=== PATIENT | male | born 1995 | race Caucasian/White ===

== ENCOUNTER 2024-12-13 12:36 | Observation (INO) | payer OTHER ==
[2024-12-13 14:03] LABS: Basophils # (A) 0.09 10*3/uL (0.00-0.10); Basophils % (A) 2.1 %; Eosinophils # (A) 0.02 10*3/uL (0.04-0.35); Eosinophils % (A) 0.5 %; HCT 43.9 % (39.6-50.0); HGB 15.6 g/dL (13.0-17.0); Lymphocytes # (A) 1.31 10*3/uL (0.90-5.00); Lymphocytes % (A) 31.3 %; MCH 31.9 pg (27.0-32.0); MCHC 35.5 g/dL (32.0-37.0); MCV 89.8 fL (80.0-97.0); Monocytes # (A) 0.29 10*3/uL (0.20-1.00); Monocytes % (A) 6.9 %; Neutrophils # (A) 2.47 10*3/uL (1.80-7.70); Neutrophils % (A) 59.0 %; Platelet Count 352 10*3/uL (140-440); RBC 4.89 10*6/uL (4.40-5.60); RDW 14.2 % (11.5-14.5); WBC 4.19 10*3/uL (4.50-10.00)
[2024-12-13] MEDS: SODIUM CHLORIDE 0.9% 1,000 ML IV SCH (14:04)
[2024-12-13 14:13] LABS: ALT 48 U/L (4-49); AST 38 U/L (17-59); African American GFR (CKD) >90 (>60 ml/min/1.73 sqM); Albumin 4.4 g/dL (3.5-5.0); Alkaline Phosphatase 74 U/L (38-126); Anion Gap 16 mmol/L; Blood Urea Nitrogen 5 mg/dL (9-20); Calcium 8.8 mg/dL (8.4-10.2); Carbon Dioxide 22 mmol/L (22-30); Chloride 108 mmol/L (98-107); Glucose 85 mg/dL (74-99); Lipase 165 U/L (23-300); Magnesium 1.7 mg/dL (1.6-2.3); Non-African American GFR(CKD) >90 (>60 ml/min/1.73 sqM); Potassium 4.4 mmol/L (3.5-5.1); Sodium 146 mmol/L (137-145); Total Protein 7.3 g/dL (6.3-8.2)
[2024-12-13] MEDS ORDERED: NALOXONE 0.4 MG/ML 1 ML VIAL IV PRN (14:21)
[2024-12-13] MEDS ORDERED: LORazepam 1 MG/0.5 ML VIAL IV PRN ×2 (14:21)
--- NOTE | 2024-12-13 14:21 | ED ---
Psych HPI - General Chief Complaint: Psychiatric Symptoms Stated Complaint: ETOH,Suicidal Time Seen by Provider: 12/13/24 12:37 Source: patient, EMS, RN notes reviewed Mode of arrival: EMS Limitations: no limitations - History of Present Illness Initial Comments: 28-year-old male presents emergency department with chief complaint of alcohol abuse, depression. Patient was checking in [place] today with suicidal. Patient states that he is just upset he lost his father 2 years ago. He drinks at least 1/5 of petition and sent over for evaluation. He does admit to prior drug use. Denies attempt at self-harm today. Denies any abdominal pain no headache or dizziness. Patient does admit to significant withdrawal symptoms in the past - Related Data Home Medications Medication Instructions Recorded Confirmed No Known Home Medications 12/13/24 12/13/24 Allergies Allergy/AdvReac Type Severity Reaction Status Date / Time No Known Allergies Allergy Verified 12/13/24 14:02 Review of Systems ROS Statement: Those systems with pertinent positive or pertinent negative responses have been documented in the HPI. ROS Other: All systems not noted in ROS Statement are negative. Past Medical History Past Medical History: No Reported History Past Surgical History: No Surgical Hx Reported Smoking Status: Current every day smoker Past Alcohol Use History: Abuse Past Drug Use History: Opiates General Exam General appearance: alert, in no apparent distress, appears intoxicated Head exam: Present: atraumatic, normocephalic, normal inspection Eye exam: Present: normal appearance, PERRL, EOMI. Absent: scleral icterus, conjunctival injection, periorbital swelling ENT exam: Present: normal exam, mucous membranes moist Neck exam: Present: normal inspection, full ROM. Absent: tenderness, meningismus, lymphadenopathy Respiratory exam: Present: normal lung sounds bilaterally. Absent: respiratory distress, wheezes, rales, rhonchi, stridor Cardiovascular Exam: Present: regular rate, normal rhythm, normal heart sounds. Absent: systolic murmur, diastolic murmur, rubs, gallop, clicks GI/Abdominal exam: Present: soft, normal bowel sounds. Absent: distended, tenderness, guarding, rebound, rigid Course Vital Signs 12/13/24 12:38 Temperature 97.8 F Pulse Rate 98 Respiratory 18 Rate Blood Pressure 134/85 O2 Sat by Pulse 99 Oximetry Medical Decision Making - Medical Decision Making Was pt. sent in by a medical professional or institution (SAEED Joel, CHILD WELFARE CONSULTANT, urgent care, hospital, or prison...) When possible be specific @ -[place] Did you speak to anyone other than the patient for history (EMS, parent, family, police, friend...)? What history was obtained from this source @ -No Did you review nursing and triage notes (agree or disagree)? Why? @ -I reviewed and agree with nursing and triage notes Were old charts reviewed (outside hosp., previous admission, EMS record, old EKG, old radiological studies, urgent care reports/EKG's, prison records)? Report findings @ -No old charts were reviewed Differential Diagnosis (chest pain, altered mental status, abdominal pain women, abdominal pain men, vaginal bleeding, weakness, fever, dyspnea, syncope, headache, dizziness, GI bleed, back pain, seizure, CVA, palpatations, mental health, musculoskeletal)? @ -Differential Mental Health Depression, anxiety, bipolar, psychosis, schizophrenia, borderline personality, situational depression, adjustment disorder, behavioral disorder, brain tumor, malingering, substance abuse, encephalopathy, medication reaction, dementia, hypothyroidism, degenerative neurologic disorder, lupus.... This is not meant to be all-inclusive list EKG interpreted by me (3pts min.). @ -None X-rays interpreted by me (1pt min.). @ -None done CT interpreted by me (1pt min.). @ -None done U/S interpreted by me (1pt. min.). @ -None done What testing was considered but not performed or refused? (CT, X-rays, U/S, labs)? Why? @ -None What meds were considered but not given or refused? Why? @ -None Did you discuss the management of the patient with other professionals (professionals i.e. SAE[facility] Joel, CHILD WELFARE CONSULTANT, lab, RT, psych nurse, clinical social work therapist, senior nurse manager, teacher, patient safety officer, nurse outreach case manager)? Give summary @ -Patient admitted to [facility] with consult to EPS Was smoking cessation discussed for >3mins.? @ -No Was critical care preformed (if so, how long)? @ -No Were there social determinants of health that impacted care today? How? (Homelessness, low income, unemployed, alcoholism, drug addiction, transportation, low edu. Level, literacy, decrease access to med. care, [place] [facility], rehab)? @ -No Was there de-escalation of care discussed even if they declined (Discuss DNR or withdrawal of care, Hospice)? DNR status @ -No What co-morbidities impacted this encounter? (DM, HTN, Smoking, COPD, CAD, Cancer, CVA, ARF, Chemo, Hep., AIDS, mental health diagnosis, sleep apnea, morbid obesity)? @ -alcohol abuse Was patient admitted / discharged? Hospital course, mention meds given and route, prescriptions, significant lab abnormalities, going to OR and other pertinent info. @ -Admitted patient has significant alcohol intoxication with admitted for sobriety, pending EPS evaluation and alcohol withdrawal protocol Undiagnosed new problem with uncertain prognosis? @ -No Drug Therapy requiring intensive monitoring for toxicity (Heparin, Nitro, Insulin, Cardizem)? @ -No Were any procedures done? @ -No Diagnosis/symptom? @ -Alcohol abuse alcohol intoxication, depression, suicide ideation Acute, or Chronic, or Acute on Chronic? @ -Acute Uncomplicated (without systemic symptoms) or Complicated (systemic symptoms)? @ -Comp. Side effects of treatment? @ -No Exacerbation, Progression, or Severe Exacerbation? @ -No Poses a threat to life or bodily function? How? (Chest pain, USA, FL, pneumonia, PE, COPD, DKA, ARF, appy, cholecystitis, CVA, Diverticulitis, Homicidal, Suicidal, threat to staff... and all critical care pts) @ -[Yes suicidal - Lab Data Result diagrams: 12/13/24 13:46 Lab Results 12/13/24 Range/Units 13:46 WBC 4.19 L (4.50-10.00) 10*3/uL RBC 4.89 (4.40-5.60) 10*6/uL Hgb 15.6 (13.0-17.0) g/dL Hct 43.9 (39.6-50.0) % MCV 89.8 (80.0-97.0) fL MCH 31.9 (27.0-32.0) pg MCHC 35.5 (32.0-37.0) g/dL Plt Count 352 (140-440) 10*3/uL MPV 8.7 L (9.5-12.2) fL Immature Gran % (Auto) 0.2 % Neutrophils % 59.0 % Lymphocytes % 31.3 % Monocytes % 6.9 % Eosinophils % 0.5 % Basophils % 2.1 % Immature Gran # 0.01 (0.00-0.04) 10*3/uL Neutrophils # 2.47 (1.80-7.70) 10*3/uL Lymphocytes # 1.31 (0.90-5.00) 10*3/uL Monocytes # 0.29 (0.20-1.00) 10*3/uL Eosinophils # 0.02 L (0.04-0.35) 10*3/uL Basophils # 0.09 (0.00-0.10) 10*3/uL Disposition Clinical Impression: Depression, Alcohol intoxication, Alcohol abuse Disposition: ADMITTED IP TO THIS HOSP Condition: Poor Referrals: None,Stated [Primary Care Provider] - 1-2 days Time of Disposition: 14:20
[2024-12-13 14:35] LABS: Opiate Screen,Urine Not Detected (NotDetected); Phencyclidine Screen,Urine Not Detected (NotDetected); Urn Cannabinoid Scrn Not Detected (NotDetected)
[2024-12-13 14:36] LABS: Barbiturate Screen,Urine Detected (NotDetected); Benzodiazepines Screen,Urine Detected (NotDetected); Oxycodone Screen, Urine Not Detected (NotDetected); Tricyclic Antidepressant,Urine Not Detected (NotDetected)
[2024-12-13] MEDS ORDERED: TEMAZEPAM 15 MG CAP PO PRN (16:43)
[2024-12-13] MEDS: LORazepam 1 MG/0.5 ML VIAL IV PRN (21:02)
[2024-12-14] MEDS: LORazepam 1 MG TAB PO PRN (04:23)
[2024-12-14] MEDS: PANTOPRAZOLE 40 MG TABLET PO SCH (06:36)
[2024-12-14 08:26] LABS: ALT 40 U/L (10-49); AST 27 U/L (14-35); Albumin 3.6 g/dL (3.8-4.9); Albumin/Globulin Ratio 1.57 Ratio (1.60-3.17); Alkaline Phosphatase 65 U/L (41-126); Anion Gap 11.10 mmol/L (4.00-12.00); BUN/Creat Ratio 10.00 Ratio (12.00-20.00); Blood Urea Nitrogen 6.0 mg/dL (9.0-27.0); Calcium 8.7 mg/dL (8.7-10.3); Carbon Dioxide 25.9 mmol/L (21.6-31.8); Chloride 105 mmol/L (96-109); Globulin 2.3 g/dL (1.6-3.3); Glucose 74 mg/dL (70-110); Potassium 4.1 mmol/L (3.5-5.5); Sodium 142 mmol/L (135-145); Total Protein 5.9 g/dL (6.2-8.2)
[2024-12-14 08:30] LABS: Basophils # (A) 0.09 X 10*3/uL (0.00-0.10); Basophils % (A) 1.8 %; Eosinophils # (A) 0.06 X 10*3/uL (0.04-0.35); Eosinophils % (A) 1.2 %; HCT 39.1 % (39.6-50.0); HGB 13.2 g/dL (13.0-17.0); Immature Grans, Automated 0.20 %; Lymphocytes # (A) 1.24 X 10*3/uL (0.90-5.00); Lymphocytes % (A) 24.2 %; MCH 31.1 pg (27.0-32.0); MCHC 33.8 g/dL (32.0-37.0); MCV 92.0 FL (80.0-97.0); Monocytes # (A) 0.54 X 10*3/uL (0.20-1.00); Monocytes % (A) 10.5 %; NRBC Per 100 WBC 0 X 10*3/uL (0.00-0.01); Neutrophils # (A) 3.18 X 10*3/uL (1.80-7.70); Neutrophils % (A) 62.1 %; Platelet Count 299 X 10*3/uL (140-440); RBC 4.25 X 10*6/uL (4.40-5.60); RDW 14.2 % (11.5-14.5); WBC 5.12 X 10*3/uL (4.50-10.00)
[2024-12-14] MEDS: THIAMINE 100 MG TAB PO SCH (09:54)
[2024-12-14] MEDS: LORazepam 0.5 MG TAB PO PRN (12:35)
--- NOTE | 2024-12-14 12:49 | HP ---
HISTORY AND PHYSICAL CHIEF COMPLAINT: Alcohol intoxication and depression. HISTORY OF PRESENT ILLNESS: This is a 28-year-old gentleman with a past history of multiple medical problems including significant alcohol intake and on rehab on multiple occasions, also presented with [facility]. The patient apparently was suicidal and upset with the loss of his father and the patient apparently drank today and the patient alcohol level was 218 and the patient admitted for further evaluation and treatment. There is no history of fever, rigors, or chills at this time. PAST MEDICAL HISTORY: History of alcohol abuse, opiate abuse and depression. HOME MEDICATIONS: None. ALLERGIES: None. FAMILY HISTORY: No history of heart disease or strokes in the family. SOCIAL HISTORY: Smoking, alcohol. REVIEW OF SYSTEMS: A 14-point review of systems is negative except as mentioned earlier. PHYSICAL EXAMINATION: VITAL SIGNS: Pulse 98, blood pressure 135/80, and respirations 18. HEENT: Conjunctivae normal. NECK: No JVD. CARDIOVASCULAR: S1 and S2. ABDOMEN: Soft. LEGS: No edema. NERVOUS SYSTEM: No focal deficits. No tremors. LABORATORY DATA: Reviewed. ASSESSMENT: 1. Acute alcohol intoxication. 2. Depression with suicidal ideation. 3. Hypernatremia. 4. History of opiate abuse. RECOMMENDATIONS: This is a 28-year-old gentleman who presented with multiple complex medical issues. We will monitor the patient closely. Continue with the current management and recommend psychiatric evaluation. Otherwise, [place] protocol. Repeat labs in the morning. Guarded prognosis because of multiple complex medical conditions. For further recommendations, see orders for details. MMODL / IJN: [id number] /
[2024-12-14 13:29] VITALS: BMI 17.4
--- NOTE | 2024-12-14 14:28 | P.CN ---
Psychiatric Consult - . 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 Patient apparently went to [facility] and then was brought to the hospital via EMS. Patient's urine drug screen is positive for barbiturates benzodiazepines. Blood alcohol level was 289. Patient was seen lying in bed today was mildly tremulous today, poor eye contact was agreeable to speak to web content writer. States that he went to [facility] to get treatment however states that he was "hammered" and claims that he made a "stupid remark" about being suicidal. He claims that he is not using that at all and said that only because he was drunk. He claims that he cannot remember everything that he said however does not think called the ambulance on him. He currently denies any depression or anxiety. Does claim that he is having minor withdrawal symptoms including shaking, denies any history of DTs or seizures. Claims that he is drinking significantly about 2- 3/5 of vodka a day for the past 10 years or so. Claims that his sleep has been fair appetite has been on and off. Claims that he is still grieving his father's passing over a year ago however he is fairly future oriented once again denies any suicidal thoughts and wants to live for his girlfriend and his life and job. At this time patient denies any suicidal or homical ideations, intent or plan. Patient denies any auditory, visual hallucinations and denies any paranoia or delusions. Patients admits to using alcohol as noted above, cigarettes regularly, also cannabis occasionally. PAST PSYCHIATRIC HISTORY: Patient has a a history of alcohol abuse. Patient denies being on any psychiatric medications. Claims that he was admitted psychiatrically to the unit at [facility] however states that he was mainly for "to detox". Patient denies any psychiatric outpatient follow-up. Patient denies any history of suicide attempts in the past. PAST MEDICAL HISTORY: As per medical H&P ALLERGIES: as per EMR. CHEMICAL DEPENDENCY HISTORY: as per HPI. FAMILY PSYCHIATRIC/SUBSTANCE USE HISTORY: Denies SOCIAL HISTORY: Patient was born and raised in [place] and also [place]. He claims that he completed high school and did some college. Denies any legal history. 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 Currently lives alone in an apartment. MENTAL STATUS EXAM: General Appearance: Patient appears to be have several tattoos, stated age is alert, pleasant, and attempts to be cooperative. Patient appears to have fair hy giene and grooming wearing hospital gown with poor eye contact. Behavior: Patient is calmly lying in bed without any agitated behavior. Attempts to cooperate, mildly tremulous Speech: Patient's speech is fluent and nonpressured. Fairly concrete Mood/Affect: Patient reports their mood is "good", affect is congruent Suicidality/Homicidality: Patient denies having any suicidal or homicidal ideation intent or plan. Perceptions: Patient denies any visual hallucinations and denies any auditory hallucinations Though content/process: There is no evidence of any delusional thought content and thought process is linear and goal-directed. Focused on going to [facility] Memory and concentration: AOX3, grossly intact for the purposes of this session. Can spell "WORLD" backwards Judgment and insight: Improving IMPRESSIONS: Adjustment disorder with disturbances and emotions Alcohol use disorder, severe dependence, currently in withdrawal Cannabis use disorder mild abuse Nicotine dependence PLAN: -At this time patient DOES NOT meet criteria for inpatient psychiatric admission. -Would recommend the following medication changes/additions: Naltrexone 50 mg daily for alcohol cravings, patient is not interested in any antidepressant medications at this time. Trazodone 50 mg nightly as needed for insomnia. librium 20 mg tid for etoh withdrawal, plan to taper down. -CIWA protocol with PRN Ativan for alcohol withdrawal. Continue to monitor vital signs. -Can discontinue 1:1 sitter at this time as patient is not currently an imminent threat to themselves -dairy cattle farm worker to provide patient with outpatient mental health/psychiatry resources for appropriate follow up upon discharge -Senior Asic Engineer spoke with patient about substance abuse and the harmful effects on medical and mental health, patient verbally understood and agreed. -dairy cattle farm worker to provide patient substance use treatment resources including AA/NA meetings in the community. -dairy cattle farm worker to provide patient with access line number to call for inpatient substance rehab -Patient is fairly focused on going back to [facility] once he is discharged medically -Communicated plan to patient's nurse -Psychiatry will sign off at this time -Please contact with any questions. 12/14/24 14:22 12/14/24 14:28
[2024-12-14] MEDS: NICOTINE 21MG/24HR PATCH TRANSDERM SCH (14:55)
[2024-12-14] MEDS: NALTREXONE HCL 50 MG TAB PO SCH (15:02)
--- NOTE | 2024-12-14 23:20 | P.PN ---
Subjective Progress Note Date: 12/14/24 This is a pleasant 28-year-old mal who was recently admitted with acute alcohol intoxication with alcohol withdrawal and concerns of acute delirium being closely monitored. Patient was going to [facility] and was sent here for further evaluation although had been drinking and was intoxicated. Patient reports has been drinking a lot more frequently and daily since the passing of his father. Patient reports he has been to inpatient alcohol rehab at least 7 times and reports will do well when discharging although a few days out of discharge he begins drinking again. Patient would like to return to [facility] for alcohol rehab. Patient awaiting being evaluated by psychiatry for further evaluation. Patient does have extensive depression. Patient denies chest pain or shortness of breath. Patient reports has been tolerating diet with occasional nausea with no vomiting. Patient does not feel he is actively withdrawing at this time and has a steady gait on exam. Sitter is currently at the bedside awaiting psychiatry reevaluation Review of systems: Constitutional: No reports of fatigue, fever, or chills Cardiovascular: No reports of chest pain or palpitations Respiratory: No reports of shortness of breath or cough GI: reports of occasional nausea but improving, no reports of vomiting, no diarrhea : No reports of dysuria or retention Neurovascular: No reports of generalized weakness, steady gait All medications have been reviewed PHYSICAL EXAMINATION: GENERAL: The patient is alert and oriented x4, Well developed, thin built, disheveled, unkempt HEENT: Pupils are round and equally reacting to light. EOMI. no scleral icterus. No conjunctival pallor. Normocephalic, atraumatic. No pharyngeal erythema. No thyromegaly. CARDIOVASCULAR: S1 and S2 muffled PULMONARY: diminished breath sounds bilaterally with no wheezing or rhonchi noted. ABDOMEN: soft. Nontender on exam. Thin. non-distended, normoactive bowel sounds. No palpable organomegaly. MUSCULOSKELETAL: No joint swelling or deformity. EXTREMITIES: No cyanosis, clubbing, or pedal edema. NEUROLOGICAL: Gross neurological examination did not reveal any focal deficits. Diffuse weakness SKIN: No rashes. Assessment: Acute alcohol intoxication, present on admission Depression with suicidal ideation Hyponatremia, improved History of opiate abuse GI prophylaxis DVT prophylaxis Full code Plan: Recommend to continue with current medications and management with psychiatry following making adjustments to medications recommend monitoring overnight and if no acute events, recommends discharging outpatient for [facility] follow-up. Psychiatry reporting he does not meet inpatient criteria Patient to call [facility] for a.m. discharge Continue with medications as prescribed The impression and plan of care has been dictated by Yessica Peralta, nurse practitioner as directed. Dr. Adalberto MD I have performed a history and examination and MDM of this patient, discussed the same with the dictator, and agree with the dictator's assessment and plan as written ,documented as a scribe. Based on total visit time, I have performed more than 50% of the visit. Any additional findings or plans will be noted. Objective - Vital Signs Vital signs: Vital Signs Temp 98.9 F 12/14/24 19:33 Pulse 64 12/14/24 19:33 Resp 18 12/14/24 19:33 BP 120/72 12/14/24 19:33 Pulse Ox 98 12/14/24 19:33 FiO2 Intake & Output 12/14/24 12/14/24 12/15/24 06:59 18:59 06:59 Weight 63.503 kg 63.503 kg Other: Voiding Method Toilet Toilet # Voids 1 3 - Labs CBC & Chem 7: 12/14/24 03:13 12/14/24 03:13 Labs: Abnormal Lab Results - Last 24 Hours (Table) 12/14/24 12/14/24 Range/Units 03:13 03:13 RBC 4.25 L (4.40-5.60) X 10*6/uL Hct 39.1 L (39.6-50.0) % MPV 9.4 L (9.5-12.2) FL BUN 6.0 L (9.0-27.0) mg/dL BUN/Creatinine Ratio 10.00 L (12.00-20.00) Ratio Total Protein 5.9 L (6.2-8.2) g/dL Albumin 3.6 L (3.8-4.9) g/dL Albumin/Globulin Ratio 1.57 L (1.60-3.17) Ratio
[2024-12-15 01:49] VITALS: RESP 17
[2024-12-15 08:10] VITALS: BP 123/85; PULSE 63; TEMP 97.6
[2024-12-15] MEDS: ONDANSETRON 4 MG/2 ML VIAL IVP PRN (09:16)
== END 2024-12-15 12:34 | disposition home or self-care (01) ==
LOC: EC 12:36 → 4SSUR 14:01
PROVIDERS: ADMIT Hospitalist; ATTEND Hospitalist
DX: F10.229 Alcohol dependence with intoxication, unspecified (principal); F10.239 Alcohol dependence with withdrawal, unspecified; E87.0 Hyperosmolality and hypernatremia; F43.29 Adjustment disorder with other symptoms; F32.A Depression, unspecified; R45.851 Suicidal ideations; Y90.8 Blood alcohol level of 240 mg/100 ml or more; F11.10 Opioid abuse, uncomplicated; F12.10 Cannabis abuse, uncomplicated; F17.200 Nicotine dependence, unspecified, uncomplicated
CPT/HCPCS: 96375; 82075; 96361; 96374; 99285; 36415; 80053 ×2; 83690; 83735; 85025 ×2; 80306; 80320; G0378 ×3; S4990 ×2; J2060; J2405